=== PATIENT | female | born 1945 | race Caucasian/White ===

== ENCOUNTER 2020-04-29 14:03 | Emergency (ER) | payer MEDICARE, OTHER ==
[~2020-04-29] VITALS: Ht 160 cm; Wt 67.9 kg
[~2020-04-29 14:03] MED LIST: CIPROFLOXACIN500 M1 PO; FELDENE20 MG PO; KEFLEX500 MG PO; LOSARTAN-HCTZ1 EAC1 PO; PYRIDIUM200 MG PO; ZOCOR40 MG PO
[2020-04-29] MEDS ORDERED: LEVO-T75 MCG PO (14:17)
[2020-04-29 15:04] VITALS: BP 162/70
== END 2020-04-29 15:05 | disposition home or self-care (01) ==
LOC: M.ERS 14:03
DX: S01.81XA Laceration without foreign body of other part of head, initial encounter (principal); I10 Essential (primary) hypertension; Z79.899 Other long term (current) drug therapy; Z90.710 Acquired absence of both cervix and uterus; Z98.51 Tubal ligation status; W01.0XXA Fall on same level from slipping, tripping and stumbling without subsequent striking against object, initial encounter; Y93.89 Activity, other specified; Y92.89 Other specified places as the place of occurrence of the external cause; Y99.8 Other external cause status